=== PATIENT | female | born 1980 | race Caucasian/White ===

== ENCOUNTER 2022-08-30 06:00 | Day surgery (SDC) | payer OTHER ==
[2022-08-28 11:18] VITALS: BMI 19.2
[2022-08-30] MEDS ORDERED: BUPIVACAINE HCL/PF 0.5% (5MG/ML) 10 ML VIAL IJ ONE ×2 (08:52)
[2022-08-30] MEDS ORDERED: oxyCODONE HCL 5 MG TABLET PO PRN (09:41)
[2022-08-30] MEDS ORDERED: ONDANSETRON 4 MG/2 ML VIAL IVPUSH PRN (09:41)
[2022-08-30] MEDS ORDERED: LACTATED RINGERS SOLUTION 1,000 ML IV SCH (09:45)
[2022-08-30 12:44] VITALS: RESP 20
[2022-08-30 12:46] VITALS: TEMP 98.6
[2022-08-30 14:58] VITALS: BP 110/62; PULSE 59
== END 2022-08-30 14:30 | disposition home or self-care (01) ==
LOC: JASU-SURG 06:00
PROVIDERS: ATTEND Student in an Organized Health Care Education/Training Program
PROC: 0UT74ZZ Resection of Bilateral Fallopian Tubes, Percutaneous Endoscopic Approach (ICD-10-PCS; principal; 2022-08-30 08:00)
DX: Z30.2 Encounter for sterilization (principal)
CPT/HCPCS: 81025; 86850; 86900; 86901; 88302-TC; 94760